=== PATIENT | female | born 1975 | race Caucasian/White ===

== ENCOUNTER 2021-02-11 11:58 | Outpatient (CLI) | payer MEDICAID, SELFPAY ==
--- NOTE | ~2021-02-11 | XR_ITS ---
EXAMINATION: XR chest 2V DATE: 02/11/2021 12:27 INDICATION: Dyspnea. TECHNIQUE: Frontal and lateral views of the chest were obtained. COMPARISON: Chest 2 views 05/12/2018 FINDINGS: Calcified left lung nodules and calcified left hilar lymph nodes are consistent with old gr anulomatous disease. No pleural effusion or pneumothorax. The heart size is normal. IMPRESSION: 1. No acute cardiopulmonary disease. Reviewed, dictated and finalized at location A.
== END 2021-02-11 11:59 | disposition home or self-care (01) ==
PROVIDERS: PCP Family Medicine; Visit Provider Family Medicine
DX: R06.00 Dyspnea, unspecified (principal)
CPT/HCPCS: 71046

== ENCOUNTER 2021-02-14 08:55 | Outpatient (CLI) | payer OTHER, SELFPAY ==
--- NOTE | ~2021-02-14 | US_ITS ---
EXAMINATION: US right upper quadrant DATE: 02/14/2021 09:18 INDICATION: Right upper quadrant abdominal pain. TECHNIQUE: Multiple grayscale and Doppler ultrasound images of the abdomen were obtained. COMPARISON: CT abdomen 10/06/2008 FINDINGS: The visualized portions of the head, body, and tail of the pancreas are normal. There is di ffuse hepatic steatosis. No liver surface nodularity. There is normal flow in main portal vein. The g allbladder is normal in size and contains gallstones. No gallbladder wall thickening or sonographic M urphy sign. The common duct is normal and measures 6 mm. IMPRESSION: 1. Cholelithiasis. No evidence of acute cholecystitis. 2. Diffuse hepatic steatosis. Reviewed, dictated and finalized at location A.
== END 2021-02-14 08:56 | disposition home or self-care (01) ==
LOC: CHSIMG 08:57
PROVIDERS: PCP Family Medicine; Visit Provider Family Medicine
DX: R10.11 Right upper quadrant pain (principal)
CPT/HCPCS: 76705

== ENCOUNTER 2021-02-20 07:29 | Outpatient (CLI) | payer OTHER, SELFPAY ==
--- NOTE | ~2021-02-20 | NM_ITS ---
EXAMINATION: NM hepatobiliary wo pharm DATE: 02/20/2021 10:58 INDICATION: Right upper quadrant abdominal pain. Gallstones. COMPARISON: Ultrasound 02/14/2021 TECHNIQUE: 5.9 mCi Tc-99m mebrofenin (Choletec) was administered intravenously. Scintigraphic images of the abdomen were obtained for one hour. Then, the patient drank 8 oz Ensure, and imaging was cont inued for 60 minutes. FINDINGS: There is normal clearance of radiotracer from the blood pool. There is homogeneous tracer u ptake by the liver. Activity progresses to the bowel and gallbladder. Gallbladder ejection fraction (GBEF) was 5%. Note that with this technique, normal GBEF >= 33%. IMPRESSION: 1. Low gallbladder ejection fraction, consistent with gallbladder dysfunction and/or chronic cholecy stitis. Reviewed, dictated and finalized at location A. IMPRESSION: 1. Low gallbladder ejection fraction, consistent with gallbladder dysfunction and/or chronic cholecystitis.
== END 2021-02-20 07:30 | disposition home or self-care (01) ==
LOC: CHSIMG 07:31
PROVIDERS: PCP Family Medicine; Visit Provider Family Medicine
DX: R06.00 Dyspnea, unspecified (principal); R10.11 Right upper quadrant pain; K80.20 Calculus of gallbladder without cholecystitis without obstruction
CPT/HCPCS: 78226; 94060; 94726; 94729; A9537

== ENCOUNTER 2021-02-21 09:44 | Outpatient (CLI) | payer OTHER, SELFPAY ==
--- NOTE | ~2021-02-21 | MM_ITS ---
EXAMINATION: MM screening barbara BI w earnest HISTORY: Screening mammogram TECHNIQUE: Craniocaudal and mediolateral oblique 3-D tomosynthesis images were obtained and synthetic 2-D images were generated. CAD analysis was submitted and interpreted. COMPARISON: 06/04/2019 bilateral digital screening mammogram BREAST PARENCHYMAL COMPOSITION: The breasts are almost entirely fatty. FINDINGS: Scattered benign calcified microhematomas are noted. There is no evidence of suspicious mas s, calcification, or architectural distortion to suggest malignancy in either breast. There has been no suspicious interval change. IMPRESSION: 1. No mammographic evidence of malignancy. 2. Recommend routine screening mammography in one year. BI-RADS Category 1: Negative Reviewed, dictated and finalized at location A.
== END 2021-02-21 09:45 | disposition home or self-care (01) ==
PROVIDERS: PCP Family Medicine; Visit Provider Family Medicine
DX: Z12.31 Encounter for screening mammogram for malignant neoplasm of breast (principal)
CPT/HCPCS: 77063; 77067

== ENCOUNTER 2021-04-08 13:38 | Outpatient (CLI) | payer OTHER, SELFPAY ==
[2021-04-08 14:23] LABS: Alanine Aminotransferase 21 U/L (4-35); Albumin Level 4.2 g/dL (3.5-5.1); Alkaline Phosphatase 99 U/L (38-126); Amylase 104 U/L (30-110); Aspartate Amino Transferase 23 U/L (14-36); Bilirubin,Total 0.2 mg/dL (0.2-1.3); Lipase 61 U/L (23-300)
== END 2021-04-08 13:39 | disposition home or self-care (01) ==
PROVIDERS: PCP Family Medicine; Visit Provider Surgery
DX: K80.10 Calculus of gallbladder with chronic cholecystitis without obstruction (principal); Z01.818 Encounter for other preprocedural examination
CPT/HCPCS: 36415; 80076; 82150; 83690; 86850; 86900; 86901

== ENCOUNTER 2021-04-11 01:57 | Day surgery (SDC) | payer OTHER, SELFPAY ==
[2021-04-05 17:22] VITALS: BMI 42.4
--- NOTE | 2021-04-10 13:57 | WPDANESEPPF ---
Anes - Initial Pre Proc Eval Procedure: Operation Date: 04/11/21 12:00 Proposed Procedures p Laparoscopic Cholecystectomy - Hossein Ernandez MD Date/Time: 04/10/21 13:57 Surgeon: Hossein Ernandez MD Pre Op Diagnosis: Chronic Cholecystitis with Stones Patient Data Age: 45 Gender: F Height: 1.63 m Weight: 112.04 kg Allergies Allergy/AdvReac Type Severity Reaction Status Date / Time SYED Inhibitors AdvReac Intermediate Cough Verified 04/11/21 10:27 amoxicillin AdvReac Mild vaginitis Verified 04/11/21 10:27 Home Medications Medication Instructions Recorded Confirmed Type albuterol sulfate 90 mcg/actuation 1 puff INHALATION Q4H PRN 03/06/21 04/11/21 History aerosol inhaler losartan 50 mg-hydrochlorothiazide 1 tablet PO HS 03/06/21 04/11/21 History 12.5 mg tablet metoprolol succinate 25 mg 25 mg PO HS 03/06/21 04/11/21 History tablet,extended release 24 hr famotidine 20 mg tablet 20 mg PO HS 03/18/21 04/11/21 History albuterol sulfate [ProAir HFA] 1 puff INHALATION BID 04/05/21 04/11/21 History Patient hx anesthesia problems: none Family hx anesthesia problems: none PMFSH Past Medical History Medical History Asthma BMI 40.0-44.9, adult Chronic cholecystitis with calculus COPD (chronic obstructive pulmonary disease) GERD (gastroesophageal reflux disease) High cholesterol History of hepatitis A Hypertension Marijuana use Smoker Surgical History Surgical History H/O thumb surgery right thumb fracture History of carpal tunnel release History of delivery x2 History of hysterectomy right Family History Family History Father Hypertension Impaired glucose tolerance Grandparent Breast cancer Acute myocardial infarction Pancreatic cancer Lung cancer Social History Social History Smoking packs per day: 1.5 Smoking cigarettes per day: 30.0 Years smoked: 30 Smoking pack-years: 45.00 Smoking status: Current every day smoker Tobacco type: cigarettes Second hand tobacco smoke exposure: Yes Alcohol intake: never Substance use: current Substance use type: marijuana Living arrangements: with family 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 Questions were solicited and answers provided to the satisfaction of the patient/family/POA.
[2021-04-11] VITALS (11 sets, daily range): BP systolic 100–134; BP diastolic 56–91; PULSE 52–88; RESP 16–20; TEMP 36.3; O2SAT 96–100
--- NOTE | 2021-04-11 10:09 | WPDHPUPDATE1 ---
History and Physical Update Update Date/Time: 04/11/21 10:09 History and Physical has been reviewed, including an updated exam of the patient. There are NO changes in the patient's condition. Risks, benefits, and alternatives have been discussed and questions answered. Patient agrees to proceed with procedure.
[2021-04-11] MEDS: ACETAMINOPHEN 500 MG TABLET 1000 MG PO (10:33)
[2021-04-11] MEDS: LACTATED RINGERS 1,000 ML 30 ML IV CONT ×2 (10:47→13:13)
[2021-04-11] MEDS: KETOROLAC 15 MG/ML VIAL (*BKC) IV PUSH (10:48)
[2021-04-11] MEDS: ceFAZolin 2 GM/D5W 50 ML 2 GM/50 ML BAG IVPB (11:54)
--- NOTE | 2021-04-11 11:58 | W.PM.PROC2 ---
Procedure Note - Detailed Date of Procedure 04/11/21 Pre-op Diagnosis Chronic Cholecystitis with Stones Post-op Diagnosis same Procedure Performed Laparoscopic cholecystectomy Surgeon Hossein Ernandez MD Investigation Officer Sylvia Bernard [facility] Anesthesia general and local (0.25% Marcaine with epinephrine) Indications Patient has a history of postprandial right upper quadrant abdominal pain especially after fatty meals. Imaging showed gallstones and a HIDA scan showed a very low ejection fraction of only 5%. She is taken to surgery now for laparoscopic cholecystectomy. Findings Chronic inflammation, many gallstones, fatty liver, no biliary ductal dilatation. Description of Procedure The patient was taken to surgery and induced into general anesthesia. The abdomen is prepped and draped. Trocars were placed in usual fashion using 0.5% Marcaine with epinephrine and applied Medical optical trocars. A 5 mm camera was used. The gallbladder was freed from adhesions. The gallbladder was decompressed with a laparoscopic aspirator. The cholecystotomy was closed with a Vicryl endoloop. Many stones in the gallbladder were noted after it was decompressed. The gallbladder was then retracted anterosuperiorly and the cholecystohepatic triangle was exposed. With traction on the infundibulum, dissection was carried out in the triangle of Calot. There was quite a bit of chronic inflammation noted in this dissection. The peritoneum was thickened and the area was hypervascular. The cystic duct and cystic artery were dissected out. The gallbladder was dissected free of the liver at its lower 3rd. Critical view was achieved. The cystic duct and cystic artery were then securely clipped and divided. The gallbladder was then carefully freed of its remaining attachments to the liver. Cautery was used for hemostasis. Eventually the gallbladder was freed. It was placed in an Endo-Catch bag and removed through the 10 11 epigastric trocar. The epigastric trocar was then replaced. We reviewed the right upper quadrant. The gallbladder fossa was irrigated and some additional cautery was used. We then irrigated and suctioned the area several times until we were comfortable that all was satisfactory. There was no sign of bleeding or bile leakage. We used a Arnie-Krysten suture pass device and Arnie cone to close the fascia at the epigastric trocar. We then evacuated CO2 and removed the trocar sleeves. All skin wounds were closed with subcuticular 4-0 Monocryl skin suture. The wounds were dressed with Exofin surgical adhesive. Patient was awakened and taken to recovery in good condition. Sponge and needle counts were correct x2. Estimated Blood Loss 5 Drains No Packing No Pathology yes (Gallbladder) Complications No immediate complications Condition stable Disposition PACU
[2021-04-11] MEDS: fentaNYL CITRATE INJ (*CRX) 100 MCG/2 ML VIAL 25 MCG IV PUSH ×2 (13:40→13:43)
[2021-04-11] MEDS: ONDANSETRON INJ 4 MG/2 ML VIAL IV PUSH (14:11)
[2021-04-11] MEDS: HALOPERIDOL LACTATE 5 MG/ML VIAL 1 MG IV PUSH (14:57)
[2021-04-11] MEDS: SCOPOLAMINE 1.5 MG PATCH TRANSDERM (14:57)
[2021-04-11] MEDS: diphenhydrAMINE HCl INJ 50 MG/ML VIAL 25 MG IV PUSH (15:48)
== END 2021-04-11 17:00 | disposition home or self-care (01) ==
PROVIDERS: PCP Family Medicine; Visit Provider Surgery
PROC: 0FT44ZZ Resection of Gallbladder, Percutaneous Endoscopic Approach (ICD-10-PCS; CPT 47562; principal; 2021-04-11 12:00)
DX: K80.10 Calculus of gallbladder with chronic cholecystitis without obstruction (principal); J44.9 Chronic obstructive pulmonary disease, unspecified; K21.9 Gastro-esophageal reflux disease without esophagitis; I10 Essential (primary) hypertension; E78.00 Pure hypercholesterolemia, unspecified; Z79.51 Long term (current) use of inhaled steroids; F17.210 Nicotine dependence, cigarettes, uncomplicated; F12.90 Cannabis use, unspecified, uncomplicated; E66.01 Morbid (severe) obesity due to excess calories; Z68.41 Body mass index [BMI] 40.0-44.9, adult
CPT/HCPCS: 47562; 88304; A9270; C1713; J0690; J1100; J1200; J1630; J1885; J2250; J2405; J2704; J2710; J3010; J7120

== ENCOUNTER 2021-07-03 12:10 | Outpatient (CLI) | payer OTHER, SELFPAY ==
--- NOTE | ~2021-07-03 | XR_ITS ---
XR knee LT 3V DATE: 07/03/2021 12:35 INDICATION: Left suprapatellar knee pain TECHNIQUE: AP, lateral, sunrise views COMPARISON: None FINDINGS: No fracture or dislocation. Small suprapatellar knee joint effusion is suggested.. There is very slight periarticular spurring of the patella. Joint spaces are well preserved. No radiopaque intra-articular loose body or chondrocalcinosis. No periosteal reaction or bone destruction. IMPRESSION: Minimal periarticular spurring of the patella Small suprapatellar knee joint effusion is suggested Reviewed, dictated and finalized at location A. ITION ASSOCIATE
--- NOTE | ~2021-07-03 | XR_ITS ---
XR elbow RT min 3V DATE: 07/03/2021 12:36 INDICATION: Generalized elbow pain. No known injury. TECHNIQUE: 4 views COMPARISON: None FINDINGS: No fracture or dislocation or joint effusion. No periosteal reaction or bone destruction. J oint spaces are preserved. IMPRESSION: Negative Reviewed, dictated and finalized at location A. OGICAL TECHNICAL OFFICER IMPRESSION: Negative
== END 2021-07-03 12:11 | disposition home or self-care (01) ==
LOC: CHSIMG 12:12
PROVIDERS: PCP Family Medicine; Visit Provider Family Medicine
DX: M25.562 Pain in left knee (principal); M25.521 Pain in right elbow
CPT/HCPCS: 73080; 73562

== ENCOUNTER 2021-07-17 13:59 | Outpatient (RCR) | payer OTHER, SELFPAY ==
--- NOTE | 2021-07-17 14:41 | PTOPEVAL ---
Thank you for referring Lois Hernandez to [facility].? The patient is scheduled to be seen for therapy? __2__x/week for 6 visits. Please review, sign, date and return this plan of care KRISTOFER. I agree with and certify that the following plan of care is medically necessary. Referring Physician Date Admitting Provider: Attending Provider: Brady Clemens MD Referring Provider: *PT Outpatient Evaluation Start: 07/17/21 14:05 Freq: Status: Active Protocol: Document 07/17/21 14:05 BANDAR (Rec: 07/17/21 14:40 BANDAR [id number]) Therapy Assessment Status Assessment Status Assessment Status Evaluation Outpatient Past Medical History Neurological History Hx Neurological Disorders No Significant History Cardiovascular History Hx Hypertension Yes Respiratory History Hx Asthma Yes Gastrointestinal History Hx Gastroesophageal Reflux Disease Yes Hx Hepatitis Yes: Hep A age 8 Hx Irritable Bowel Yes Genitourinary History Hx Genitourinary Disorders No Significant History Musculoskeletal History Hx Arthritis Yes: back Hx Back Pain Yes: threw out back in 2020 Hx Degenerative Disk Disease Yes Hx Fractures Yes: rt thumb Hx Orthopedic Surgery Yes: right carpal tunnel release Hx Other Musculoskeletal Disorders Yes: narrowing of the spine Hematological History Hx Hematological Disorders No Significant History Endocrine History Hx Endocrine Disorders No Significant History HEENT History Hx HEENT Disorders No Significant History Integumentary History Hx Skin Disorders No Significant History Reproductive History Hx Section Yes: x3 Hx Fibroids Yes Psychosocial History Hx Depression Yes: seasonal depression; not currently taking meds for Pain History History of Any Previous or Ongoing No Significant History Instance of Pain Anesthesia History Hx Post-Op Nausea/Vomiting Yes Hx Other Anesthesia Reactions Yes: slow to wake-up Evaluation Information Problem Diagnosis left knee pain Onset 01/15/21 Subjective Information Pt. reports towards the end of Query Text:As Reported By Patient/ spring she began riding an Family electric bike. She reports shortly after she developed mild knee pain. She reports that the pain has gotten worse since the spring, however she is not currently riding the bike. She describes pain
== END 2021-08-05 15:54 | disposition home or self-care (01) ==
LOC: CHSPT 13:59
PROVIDERS: PCP Family Medicine; Visit Provider Family Medicine
DX: M25.562 Pain in left knee (principal)
CPT/HCPCS: 97014; 97110; 97161; 97530; G0283

== ENCOUNTER 2021-08-22 09:50 | Outpatient (CLI) | payer OTHER, SELFPAY ==
--- NOTE | 2021-08-22 11:00 | NEURO_ITS ---
Impression: # Complains of numbness of right 5th finger. # Right ulnar neuropathy across the elbow. # Mild evolving right Carpal Tunnel Syndrome. # Normal needle/EMG exam. Nerve Conduction Studies Anti Sensory Summary Table Stim Site NR Peak (ms) P-T Amp (?V) Site1 Site2 Delta-P (ms) Dist (cm) Jensen (m/s) Right Median Anti Sensory (2-3nd Digit) Wrist 3.1 43.5 Wrist 2-3nd Digit 3.1 14.0 45 Wrist 3.0 44.4 Wrist 2-3nd Digit 3.1 14.0 45 Right Radial Anti Sensory (Base 1st Digit) Wrist 1.9 32.7 Wrist Base 1st Digit 1.9 0.0 Right Ulnar Anti Sensory (5th Digit) Wrist 2.1 35.1 Wrist 5th Digit 2.1 14.0 67 Motor Summary Table Stim Site NR Onset (ms) O-P Amp (mV) Site1 Site2 Delta-0 (ms) Dist (cm) Jensen (m/s) Right Median Motor (Abd Poll Brev) Wrist 3.6 3.3 Elbow Wrist 4.4 26.0 59 Elbow 8.0 4.5 Right Ulnar Motor (Abd Dig Minimi) Wrist 2.3 6.5 A Elbow Wrist 5.3 27.0 51 A Elbow 7.6 5.8 B Elbow Wrist 3.7 21.0 57 B Elbow 6.0 3.1 F Wave Studies NR F-Lat (ms) L-R F-Lat (ms) Right Median (Mrkrs) (Abd Poll Brev) 27.74 Right Ulnar (Mrkrs) (Abd Dig Min) 27.11 EMG Side Muscle Nerve Root Ins Act Fibs Amp Dur Recrt Comment Right 1stDorInt Ulnar C8-T1 Nml Nml Nml Nml Nml Right Ext Indicis Radial (Post Int) C7-8 Nml Nml Nml Nml Nml Right Ext Digitorum Radial (Post Int) C7-8 Nml Nml Nml Nml Nml Right BrachioRad Radial C5-6 Nml Nml Nml Nml Nml Right PronatorTeres Median C6-7 Nml Nml Nml Nml Nml Right Abd Poll Brev Median C8-T1 Nml Nml Nml Nml Nml Right ABD Dig Min Ulnar C8-T1 Nml Nml Nml Nml Nml Right Abd Poll Long Radial (Post Int) C7-8 Nml Nml Nml Nml Nml MTDD
== END 2021-08-22 09:51 | disposition home or self-care (01) ==
PROVIDERS: PCP Family Medicine; Visit Provider Family Medicine
DX: G56.21 Lesion of ulnar nerve, right upper limb (principal); G56.01 Carpal tunnel syndrome, right upper limb
CPT/HCPCS: 95886; 95909

== ENCOUNTER 2021-09-03 10:54 | Outpatient (RCR) | payer OTHER, SELFPAY ==
--- NOTE | 2021-09-03 12:08 | OTOPEVAL ---
Thank you for referring Lois Hernandez to [facility].? The patient is scheduled to be seen for therapy? ____x/week for ___ weeks. Please review, sign, date and return this plan of care KRISTOFER. I agree with and certify that the following plan of care is medically necessary. Referring Physician Date Admitting Provider: Attending Provider: Harjeet Bustos MD Referring Provider: *OT Outpatient Evaluation Start: 09/03/21 10:41 Freq: Status: Active Protocol: Document 09/03/21 10:41 [facility] [place]: 09/03/21 12:08 [facility] [place] [id number] Therapy Assessment Status Assessment Status Assessment Status Evaluation Outpatient Past Medical History Neurological History Hx Neurological Disorders No Significant History Cardiovascular History Hx Hypertension Yes Respiratory History Hx Asthma Yes Gastrointestinal History Hx Gastroesophageal Reflux Disease Yes Hx Hepatitis Yes: Hep A age 8 Hx Irritable Bowel Yes Genitourinary History Hx Genitourinary Disorders No Significant History Musculoskeletal History Hx Arthritis Yes: back Hx Back Pain Yes: threw out back in 2020 Hx Degenerative Disk Disease Yes Hx Fractures Yes: rt thumb Hx Orthopedic Surgery Yes: right carpal tunnel release Hx Other Musculoskeletal Disorders Yes: narrowing of the spine Hematological History Hx Hematological Disorders No Significant History Endocrine History Hx Endocrine Disorders No Significant History HEENT History Hx HEENT Disorders No Significant History Integumentary History Hx Skin Disorders No Significant History Reproductive History Hx Section Yes: x3 Hx Fibroids Yes Psychosocial History Hx Depression Yes: seasonal depression; not currently taking meds for Pain History History of Any Previous or Ongoing No Significant History Instance of Pain Anesthesia History Hx Post-Op Nausea/Vomiting Yes Hx Other Anesthesia Reactions Yes: slow to wake-up Evaluation Information Problem Diagnosis R elbow pain Onset 05/17/22 Cause R lateral epicondylitis Subjective Information Patient reports that her R Query Text:As Reported By Patient/ elbow pain started about 3-4 Family months ago. Patient had a cortizone injection yesterday. Patient states that she is unsure what caused it but has 3 young grandchildren that she helps take care of. Patient
--- NOTE | 2021-12-17 16:36 | PCOTNOTE ---
Patient last seen on 09/10/21 and completed 3 OT sessions. Patient cancelled last scheduled appointment and did not wish to reschedule at this time. See patient's last note for status at time of discharge. MS
== END 2021-09-10 23:59 | disposition home or self-care (01) ==
LOC: CHSOT 10:54
PROVIDERS: Visit Provider Orthopaedic Surgery
DX: M77.11 Lateral epicondylitis, right elbow (principal); M25.529 Pain in unspecified elbow
CPT/HCPCS: 97014; 97035; 97140; 97165; G0283

== ENCOUNTER 2022-02-20 09:54 | Outpatient (CLI) | payer OTHER, SELFPAY ==
[2022-02-20 13:35] LABS: SARS-CoV-2 RNA PCR Positive (Negative)
== END 2022-02-20 09:55 | disposition home or self-care (01) ==
PROVIDERS: PCP Family Medicine; Visit Provider Family Medicine
DX: U07.1 COVID-19 (principal)
CPT/HCPCS: C9803; U0003; U0005

== ENCOUNTER 2022-04-16 13:22 | Outpatient (CLI) | payer OTHER, SELFPAY ==
--- NOTE | ~2022-04-16 | XR_ITS ---
XR chest 2V DATE: 04/16/2022 14:00 INDICATION: Right rib pain especially with breathing. History of asthma. Smoker. TECHNIQUE: 2 views COMPARISON: 02/11/2021 2 view chest FINDINGS: Normal heart size. Calcified left lung nodules and left hilar nodes, consistent with old pulmonary granulomatous disease . No pulmonary infiltrate or consolidation, pleural effusion or pulmonary vascular congestion or pneumo thorax is detected. Included skeletal structures are unremarkable. 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
--- NOTE | ~2022-04-16 | XR_ITS ---
EXAM: XR thoracic spine 3V DATE: 04/16/2022 14:11 HISTORY: pain in RT upper back . COMPARISON: None available. FINDINGS: Mild scoliosis. Vertebral body alignment intact. Vertebral body heights preserved. Multilev el disc space narrowing and marginal osteophytosis. No traumatic malalignment or fracture. Visualized lung parenchyma is clear. Cholecystectomy clips. IMPRESSION: Multilevel degenerative disc disease in the thoracic spine. Mild scoliosis. Reviewed, dictated and finalized at location K. IMPRESSION: Multilevel degenerative disc disease in the thoracic spine. Mild sc oliosis.
== END 2022-04-16 13:23 | disposition home or self-care (01) ==
LOC: CHSIMG 13:26
PROVIDERS: PCP Family Medicine; Visit Provider Family Medicine
DX: M54.6 Pain in thoracic spine (principal)
CPT/HCPCS: 71046; 72072

== ENCOUNTER 2022-09-30 10:59 | Outpatient (CLI) | payer OTHER, SELFPAY ==
[2022-09-30 11:11] LABS: Basophils Absolute Auto 0.04 K/mm3 (0.00-0.10); Basophils Percent Auto 0.5 % (0.0-1.0); Eosinophils Absolute Auto 0.04 K/mm3 (0.02-0.50); Eosinophils Percent Auto 0.5 % (1.0-6.0); Hemoglobin 14.8 g/dL (12.0-15.0); Immature Granulocyte Absolute 0.02 K/mm3 (0.00-0.00); Immature Granulocyte Percent A 0.2 % (0.0-0.0); Lymphocytes Absolute Auto 2.56 K/mm3 (1.10-4.50); Lymphocytes Percent Auto 31.1 % (18.0-42.0); Mean Corpuscular HGB Conc 33.6 g/dL (32.0-36.0); Mean Corpuscular Hemoglobin 31.6 pg (27.0-31.0); Monocytes Absolute Auto 0.47 K/mm3 (0.10-0.90); Monocytes Percent Auto 5.7 % (2.0-11.0); Neutrophils Absolute Auto 5.1 K/mm3 (1.7-7.2); Platelet Count Result 258 K/mm3 (150-420); Red Blood Count 4.68 M/mm3 (4.20-5.40); Red Cell Distribution Width 13.9 % (11.6-14.4); White Blood Count 8.2 K/mm3 (4.8-10.8)
[2022-09-30 11:51] LABS: Anion Gap 6 mmol/L (8-16); Blood Urea Nitrogen 8 mg/dL (7-18); Carbon Dioxide 32 mmol/L (21-32); Chloride 98 mmol/L (98-108); Estimated Glomerular Filt Rate > 60; Potassium 3.3 mmol/L (3.5-5.1); Sodium 136 mmol/L (136-145)
[2022-09-30 11:52] LABS: Alanine Aminotransferase 34 U/L (14-59); Albumin Level 3.6 g/dL (3.4-5.0); Alkaline Phosphatase 122 U/L (46-116); Aspartate Amino Transferase 27 U/L (15-37); Bilirubin,Total 0.4 mg/dL (0.00-1.00); Calcium 8.7 mg/dL (8.5-10.1); Creatine Kinase 56 U/L (26-192); Glucose 107 mg/dL (70-99); Osmolality Calculated 280 mOsm/kg (285-295); Total Protein 6.9 g/dL (6.4-8.2)
== END 2022-09-30 11:00 | disposition home or self-care (01) ==
LOC: CHSLAB 11:01
PROVIDERS: PCP Family Medicine; Visit Provider Family Medicine
DX: I10 Essential (primary) hypertension (principal); R30.0 Dysuria; M79.604 Pain in right leg
CPT/HCPCS: 36415; 80053; 82550; 84443; 85025; 87077; 87086; 87088; 87186

== ENCOUNTER 2022-10-21 07:56 | Outpatient (CLI) | payer OTHER, SELFPAY ==
[2022-10-21 08:23] LABS: Creatinine Urine 194.29 mg/dL (40-278); MALB Creatinine Ratio 13.5 mg/g (0-30); Microalbumin Urine Random 26.4 mg/L
[2022-10-21 08:48] LABS: Cholesterol 233 mg/dL (0-200); HDL Direct 38 mg/dL (40-60); LDL Cholesterol Calculated 147 mg/dL (<130); Triglycerides 238 mg/dL (0-150)
== END 2022-10-21 07:57 | disposition home or self-care (01) ==
LOC: CHSLAB 07:58
PROVIDERS: PCP Family Medicine; Visit Provider Family Medicine
DX: E78.2 Mixed hyperlipidemia (principal)
CPT/HCPCS: 36415; 80061; 82043